=== PATIENT | male | born 1965 | race African-American/Black ===

== ENCOUNTER 2024-02-24 07:24 | Outpatient (CLI) | payer OTHER, SELFPAY ==
--- NOTE | ~2024-02-24 | CT_ITS ---
CT Scan of the Chest without Contrast: Clinical Indication: Abnormal chest x-ray Technique: Contiguous sections were acquired throughout the chest without intravenous contrast. Dose reduction technique was used on this scan by utilizing automated exposure control and iterative recon struction technique. The dose-length product (DLP) was 688.98 mGy-cm. Findings: There is no evidence of any significant mediastinal, hilar or axillary lymphadenopathy. The mediastin al soft tissues appear normal. There is no evidence of pleural or pericardial effusion. The lungs are clear. No pulmonary nodules or infiltrates are noted. Images through the upper abdomen reveal no abnormalities. There is cortical thickening along the post erior aspect of the right seventh rib. Impression: No soft tissue abnormality or pulmonary abnormality seen. Cortical thickening along the posterior aspect of the right seventh rib. No destructive change, perio steal reaction, or associated soft tissue mass. This is of uncertain etiology. Paget's disease or fib vivian dysplasia are potential considerations. Reviewed, dictated and finalized at location . Impression: No soft tissue abnormality or pulmonary abnormality seen. Cortical thickening along the posterior aspect of the right seventh rib. No martha tructive change, periosteal reaction, or associated soft tissue mass. This is o f uncertain etiology. Paget's disease or fibrous dysplasia are potential consid erations.
== END 2024-02-24 07:25 | disposition home or self-care (01) ==
PROVIDERS: PCP Family Medicine; Visit Provider Family Medicine
DX: R93.89 Abnormal findings on diagnostic imaging of other specified body structures (principal)
CPT/HCPCS: 71250